=== PATIENT | female | born 1970 | race Caucasian/White ===

== ENCOUNTER 2017-10-26 10:55 | Inpatient (IN) | payer OTHER ==
[2017-10-25 11:58] VITALS: BMI 35.6
[~2017-10-26 10:55] MED LIST: BUPIVACAINE HCL/PF (5 MG/ML) 30 ML VIAL IJ ONE
[2017-10-26] MEDS ORDERED: fentaNYL CITRATE 250 MCG/5 ML VIAL ONE (12:37)
[2017-10-26] MEDS ORDERED: LIDOCAINE HCL/PF 2% SDV 5ML VIAL ONE (12:38)
[2017-10-26] MEDS ORDERED: ROCURONIUM BROMIDE 50 MG/5 ML VIAL ONE (12:38)
[2017-10-26] MEDS ORDERED: MIDAZOLAM HCL 2 MG/2 ML SINGLE DOSE VIAL ONE ×3 (12:38→12:43)
[2017-10-26] MEDS ORDERED: PROPOFOL 20 ML ONE (12:38)
[2017-10-26] MEDS ORDERED: DEXAMETHASONE SOD PHOSPHATE 4 MG/1 ML VIAL ONE (12:38)
[2017-10-26] MEDS ORDERED: ROPIVACAINE HCL 0.5% 30ML VIAL ONE (12:42)
[2017-10-26] MEDS ORDERED: morphine SULFATE 4 MG/ML VIAL IVPUSH PRN (13:04)
[2017-10-26] MEDS ORDERED: SUMAtriptan SUCCINATE 50 MG TABLET PO PRN (13:05)
--- NOTE | 2017-10-26 13:11 | OP ---
Operative Note - Note: Operative Date: 10/26/17 Pre-Operative Diagnosis: morbid obesity Operation: laparoscopic vertical sleeve gastrectomy, liver biopsy, upper endoscopy Surgeon: Josh Sears Instrumental Musician: Sujatha Olivo Anesthesiologist/ENVIRONMENTAL PROTECTION ECONOMIST: Vonda Motley Anesthesia: General Estimated Blood Loss (mls): 30 Fluid Volume Replaced (mls): 1,000 Operative Report Dictated: Yes
--- NOTE | 2017-10-26 13:12 | SURG ---
Surgery Land Measurer Note Land Measurer: Sujatha Olivo PA-C Date of Service: 10/26/17 Diagnosis: morbid obesity Procedure: laparoscopic vertical sleeve gastrectomy, liver biopsy, upper endoscopy I was present for the entirety of the operative procedure. For further detail, please refer to operative report. Visit type - Case Type Case Type: Scheduled - Emergency Emergency Visit: No - New patient This patient is new to me today: Yes Date on this admission: 10/26/17
[2017-10-26] MEDS ORDERED: METOCLOPRAMIDE HCL INJECTION 10 MG/2 ML VIAL IVPUSH SCH (13:15)
[2017-10-26] MEDS ORDERED: ACETAMINOPHEN 1000 MG/100 ML VIAL (NON FORMULARY) IVPB SCH (13:15)
[2017-10-26] MEDS ORDERED: SODIUM CHLORIDE 1,000 ML IV SCH (13:15)
[2017-10-26] MEDS ORDERED: ONDANSETRON 4 MG/2 ML VIAL IVPUSH SCH (13:15)
--- NOTE | 2017-10-26 13:15 | HP ---
Admitting History and Physical - Admission Chief Complaint: Morbid obesity History of Present Illness: Morbid obesity for vertical sleeve gastrectomy History Source: Patient Limitations to Obtaining History: No Limitations - Past Medical History SHOP TECHNICIAN: Yes: Migraine Cardiovascular: Yes: HTN Pulmonary: Yes: Sleep Apnea ...LMP: 10/15/17 Rheumatology: Yes: Fibromyalgia - Past Surgical History Additional Past Surgical History: Bladder left, left knee meniscus repair - Smoking History Smoking history: Never smoked - Alcohol/Substance Use Hx Alcohol Use: No Home Medications - Allergies Allergies/Adverse Reactions: Allergies Allergy/AdvReac Type Severity Reaction Status Date / Time No Known Allergies Allergy Verified 10/26/17 12:20 - Home Medications Home Medications: Ambulatory Orders Duloxetine HCl [Cymbalta] 30 mg PO BID 10/25/17 Famotidine [Pepcid] 20 mg PO BID #60 tablet 10/26/17 Oxycodone HCl/Acetaminophen [Percocet 5-325 mg Tablet] 1 - 2 tab PO Q6H #28 tab MDD 4 10/26/17 Sumatriptan Succinate [Imitrex -] 100 mg PO PRN PRN 10/26/17 Family Disease History - Family Disease History Family History: Unremarkable Review of Systems - Review of Systems Constitutional: denies: Chills, Fever HENT: reports: No Symptoms Neck: reports: No Symptoms Cardiovascular: reports: No Symptoms Respiratory: reports: No Symptoms Gastrointestinal: reports: No Symptoms Neurological: reports: No Symptoms Pain Intensity: 0 Physical Examination Vital Signs: Vital Signs Temperature 98.1 F 10/26/17 12:16 Pulse Rate 91 H 10/26/17 12:16 Respiratory Rate 20 10/26/17 12:16 Blood Pressure 149/91 10/26/17 12:16 O2 Sat by Pulse Oximetry (%) 96 10/26/17 12:15 Constitutional: Yes: Calm Eyes: Yes: WNL HENT: Yes: WNL Neck: Yes: WNL Cardiovascular: Yes: WNL Respiratory: Yes: WNL Gastrointestinal: Yes: Soft, Abdomen, Obese Neurological: Yes: Alert, Oriented Problem List - Problems (1) Morbid obesity due to excess calories Code(s): E66.01 - MORBID (SEVERE) OBESITY DUE TO EXCESS CALORIES (2) Sleep apnea Code(s): G47.30 - SLEEP APNEA, UNSPECIFIED Qualifiers: Sleep apnea type: unspecified type Qualified Code(s): G47.30 - Sleep apnea , unspecified (3) Hypertension Code(s): I10 - ESSENTIAL (PRIMARY) HYPERTENSION Qualifiers: Hypertension type: unspecified Qualified Code(s): I10 - Essential (primary ) hypertension Assessment/Plan Laparoscopic vertical sleeve gastrectomy, possible open, possible liver biopsy, EGD
[2017-10-26] MEDS ORDERED: BUPIVACAINE HCL/PF 0.5% (5MG/ML) 10 ML VIAL ONE (13:37)
[2017-10-26] MEDS ORDERED: ceFAZolin SODIUM 1 GM VIAL IVPB ONE (14:10)
[2017-10-26] MEDS ORDERED: ceFAZolin SODIUM 1 GM VIAL ONE (14:19)
[2017-10-26] MEDS ORDERED: ePHEDrine SULFATE 50 MG/1 ML AMPULE ONE (14:37)
[2017-10-26] MEDS ORDERED: GLYCOPYRROLATE 0.2 MG/1 ML VIAL ONE (15:48)
[2017-10-26] MEDS ORDERED: NEOSTIGMINE METHYLSULFATE 0.5 MG/ML - 10 ML MDV ONE (15:48)
[2017-10-26] MEDS ORDERED: BUPIVACAINE HCL/PF (5 MG/ML) 30 ML VIAL IJ ONE (15:51)
--- NOTE | 2017-10-26 16:20 | SPEC ---
DATE OF OPERATION: 10/26/2017 SURGEON: Josh Sears M.D. PRICE CHANGER: Jose Infante PREOPERATIVE DIAGNOSIS: 1. Morbid obesity. 2. Sleep apnea. 3. Hypertension. 4. Migraines. 5. Fibromyalgia. 6. Body mass index of 35.7. POSTOPERATIVE DIAGNOSIS: 1. Morbid obesity. 2. Sleep apnea. 3. Hypertension. 4. Migraines. 5. Fibromyalgia. 6. Body mass index of 35.7. 7. Hepatomegaly. PROCEDURE: 1. Diagnostic laparoscopy. 2. Laparoscopic vertical sleeve gastrectomy. 3. Laparoscopic wedge liver biopsy. 4. Esophagogastroduodenoscopy. SPECIMENS: 1. Greater curvature of the stomach. 2. Wedge liver biopsy. ESTIMATED BLOOD LOSS: 100 mL. DRAINS: None. ANESTHESIA: GET. BOUGIE: Size 36 German. REASON FOR THE PROCEDURE: This is a 47-year-old female who presents for weight loss options. She decided to proceed with laparoscopic, possible open vertical sleeve gastrectomy, possible liver biopsy, possible open, and upper endoscopy. RISKS AND BENEFITS: After describing the different options for weight loss management, the patient decided to proceed with a laparoscopic, possible open vertical sleeve gastrectomy. The patient was seen by the respective subspecialties and cleared for surgery. The risks and benefits of the procedure were explained. These included bleeding, infection, hernia, NH, DVT, PE, injury to surrounding structures including the liver, colon, bowel, spleen, esophagus, vessel injury, nerve injury, weight regain, gastric leak, staple line leak, sleeve leak, obstruction, vitamin deficiency, hair loss and as some of the possible complications. The patient understood and signed informed consent. DESCRIPTION OF PROCEDURE: The patient was placed supine on the operating room table. The patient underwent general endotracheal intubation. A Loo catheter was inserted. The arms were brought out at 90 degrees and secured. A footboard was placed and the legs were secured laterally with padding. The abdomen was prepped and draped in the usual sterile fashion. A timeout was performed. An incision was made in the left upper quadrant and a Veress needle inserted. Pneumoperitoneum was established. Subsequently, the Veress needle was removed and a 12-mm trocar was placed. The laparoscopic camera was then inserted and inspection of the abdominal cavity was performed. An incision was then made in the supraumbilical area and a 15-mm trocar was placed under direct visualization. A 5-mm trocar was then placed in the right upper quadrant and a 5-mm trocar was placed below the left subcostal margin. A stab wound was made in the subxiphoid area and a Erlinda clamp inserted and removed to dilate the tract. A Dedra liver retractor was inserted. The post was secured at the bedside by the nursing staff. The patient was placed in steep reverse Trendelenburg position and the Dedar liver retractor was used to secure the liver towards the anterior abdominal wall. The pylorus was identified and 6 cm proximal to it, the lesser sac was entered using the LigaSure device. All lateral attachments to the greater curvature of the stomach, including the short gastric vessels, were ligated using the LigaSure device toward the gastrosplenic and gastrophrenic ligaments. Once this was done in its entirety, it was confirmed that all tubes within the nasal or oropharyngeal cavity, including a temperature probe, was removed by Anesthesia. The bougie was then inserted by Anesthesia. Transection of the stomach was then begun staying adjacent to the bougie but away from the angularis. Transection of the stomach was performed near the portion of the stomach where the lesser sac was entered. Two laparoscopic Endo-HUBERT black sarah were used at this location. Laparoscopic Endo HUBERT purple staple loads were then used for the remainder of the transection until the greater curvature of the stomach was fully transected. This was done staying close to the bougie. Care was taken to stay away from the angle of His cephalad. The staple line was then inspected. Hemostasis was identified. A leak test was then performed. It was clamped distally to the staple line. Irrigation solution was placed in the left upper quadrant and air was insufflated by Anesthesia into the sleeve. No leaks were identified. No obstruction was identified. This was done through the entirety of the staple line. At this point, the irrigation solution was suctioned and again , hemostasis was noted. A wedge liver biopsy was then performed. The left lobe of the liver was identified and a portion of the edge was grasped. Using electrocautery, a wedge of the liver was excised. This was removed and sent off the field as specimen. Hemostasis at the site of the wedge liver biopsy was attained using electrocautery. The 15-mm supraumbilical trocar was then removed and the greater curvature specimen removed from the site using a sponge stick marroquin. The specimen was inspected and a Veress needle inserted. The specimen insufflated adequately and no leak was identified. The staple line was noted to be intact. A Anastacio-Dwight device was then used to temporarily close the fascia with a 0 Vicryl suture at the site. The 15-mm trocar was then reinserted and the 12-mm trocar in the left upper quadrant was removed. The fascia at this site was then closed using the Anastacio-Dwight device with a 0 Vicryl suture. Again, hemostasis was noted. The Dedra liver retractor was then removed under direct visualization. Pneumoperitoneum was desufflated and the fascial sutures were secured. Hemostasis was noted at all incision sites and Marcaine was injected at all incision sites. All incision sites were closed using 4-0 Biosyn. Sterile dressings were applied. The patient tolerated the procedure well and was transferred to the recovery room in stable condition with the Loo catheter intact. The patient was transferred to telemetry for further monitoring. ADDENDUM: At the end of the case, an upper endoscopy was performed. The endoscope was placed into the patient's mouth. The esophagus, GE junction, Gastric pouch and staple line were inspected. Hemostasis was noted. No leak or obstruction was noted. The stomach was suctioned, and the scope removed. The patient tolerated the procedure well. Surgicel was placed on the liver bed and along the staple lines for added hemostasis. Patient was transferred to recovery room in stable condition. Silvia [id number] CHEIKH
[2017-10-26] MEDS ORDERED: ACETAMINOPHEN INJECTION 100 ML IVPB ONE (16:25)
[2017-10-26] MEDS: ACETAMINOPHEN 1000 MG/100 ML VIAL (NON FORMULARY) IVPB SCH ×2 (16:30→22:41)
[2017-10-26] MEDS: METOCLOPRAMIDE HCL INJECTION 10 MG/2 ML VIAL IVPUSH SCH ×2 (17:00→22:41)
[2017-10-26] MEDS ORDERED: METOCLOPRAMIDE HCL INJECTION 10 MG/2 ML VIAL ONE (17:09)
[2017-10-26 17:18] LABS: BASO % 0.4 % (0-2.0); EOS % 1.1 % (0-4.5); HEMATOCRIT 31.9 % (32.4-45.2); HEMOGLOBIN 10.2 GM/dL (10.7-15.3); LYMPH % 17.7 % (8-40); MCH 24.6 pg (25.7-33.7); MCHC 31.8 g/dl (32.0-36.0); MEAN CELL VOLUME 77.4 fl (80-96); MEAN PLT VOLUME 8.7 fl (7.5-11.1); MONO % 2.7 % (3.8-10.2); NEUT % 78.1 % (42.8-82.8); PLATELET COUNT 343 K/MM3 (134-434); RBC 4.12 M/mm3 (3.60-5.2); RDW 16.5 % (11.6-15.6); WHITE BLOOD COUNT 12.6 K/mm3 (4.0-10.0)
[2017-10-26 17:53] LABS: ALBUMIN 3.4 g/dl (3.4-5.0); ANION GAP 9 (8-16); BILIRUBIN,TOTAL 0.7 mg/dL (0.2-1.0); BLOOD UREA NITROGEN 9 mg/dL (7-18); CHLORIDE 104 mmol/L (98-107); CO2 27 mmol/L (21-32); CREATININE 0.8 mg/dL (0.55-1.02); GLUCOSE,RANDOM 156 mg/dL (74-106); POTASSIUM 3.4 mmol/L (3.5-5.1); SGOT/AST 61 U/L (15-37); SGPT/ALT 49 U/L (12-78); SODIUM 140 mmol/L (136-145)
[2017-10-26 17:55] LABS: ALK PHOS 109 U/L (45-117); TOT PROT 6.4 g/dl (6.4-8.2)
[2017-10-26] MEDS: morphine SULFATE 4 MG/ML VIAL IVPUSH PRN ×2 (18:57→23:48)
[2017-10-26] MEDS: SODIUM CHLORIDE 1,000 ML IV SCH (19:30)
[2017-10-26] MEDS: ONDANSETRON 4 MG/2 ML VIAL IVPUSH SCH (20:31)
[2017-10-26] MEDS: ENOXAPARIN NA (PORCINE) 40 MG/0.4 ML DISP.SYRIN SQ SCH (21:26)
[2017-10-26] MEDS: FAMOTIDINE 20 MG/50 ML IVPB 20 MG/50 ML MG IVPB SCH (21:26)
[2017-10-26] MEDS ORDERED: FAMOTIDINE 20 MG/50 ML IVPB 20 MG/50 ML MG IVPB SCH (22:00)
--- NOTE | 2017-10-26 23:43 | HOSP ---
Subjective - Review of Symptoms Subjective: Called by nurse to evaluate sudden onset sharp shoulder pain. On examination, pain is located in L posterior shoulder. 7/10 in severity. Stated that it had subsided when I arrived. PE General: pt laying comfortably in bed in no acute distress Card/Lung exams wnl Extremities: Pain was reproducible on palpation. Plan: -discussed with nurse to continue pain medication and call Dr. Sears for further management (primary provider). Physical Examination Vital Signs: Vital Signs Temperature 98.0 F 10/26/17 21:04 Pulse Rate 86 10/26/17 21:04 Respiratory Rate 20 10/26/17 21:04 Blood Pressure 132/88 10/26/17 21:04 O2 Sat by Pulse Oximetry (%) 96 10/26/17 21:00 Labs: CBC, BMP 10/26/17 16:45 10/26/17 16:45 Visit type - Emergency Visit Emergency Visit: No - New Patient This patient is new to me today: Yes Date on this admission: 10/26/17 - Critical Care Critical Care patient: No
[2017-10-27] MEDS: ONDANSETRON 4 MG/2 ML VIAL IVPUSH SCH ×6 (00:15→21:51)
[2017-10-27] MEDS: ACETAMINOPHEN 1000 MG/100 ML VIAL (NON FORMULARY) IVPB SCH ×2 (05:00→09:50)
[2017-10-27] MEDS: METOCLOPRAMIDE HCL INJECTION 10 MG/2 ML VIAL IVPUSH SCH ×4 (05:45→21:51)
[2017-10-27 06:57] LABS: HEMATOCRIT 24.1 % (32.4-45.2); HEMOGLOBIN 7.8 GM/dL (10.7-15.3); MCH 25.1 pg (25.7-33.7); MCHC 32.5 g/dl (32.0-36.0); MEAN CELL VOLUME 77.1 fl (80-96); MEAN PLT VOLUME 8.5 fl (7.5-11.1); PLATELET COUNT 289 K/MM3 (134-434); RBC 3.13 M/mm3 (3.60-5.2); RDW 16.4 % (11.6-15.6); WHITE BLOOD COUNT 12.4 K/mm3 (4.0-10.0)
[2017-10-27 07:19] LABS: CALCIUM 7.3 mg/dL (8.5-10.1); CHLORIDE 104 mmol/L (98-107); POTASSIUM 4.2 mmol/L (3.5-5.1); SODIUM 139 mmol/L (136-145)
[2017-10-27 07:26] LABS: ALBUMIN 2.9 g/dl (3.4-5.0); ALK PHOS 87 U/L (45-117); ANION GAP 7 (8-16); BILIRUBIN,TOTAL 0.7 mg/dL (0.2-1.0); BLOOD UREA NITROGEN 11 mg/dL (7-18); CO2 28 mmol/L (21-32); CREATININE 0.8 mg/dL (0.55-1.02); GLUCOSE,RANDOM 138 mg/dL (74-106); SGOT/AST 46 U/L (15-37); SGPT/ALT 43 U/L (12-78); TOT PROT 5.4 g/dl (6.4-8.2)
--- NOTE | 2017-10-27 08:42 | PN ---
Progress Note (short form) - Note Progress Note: POD #1 - s/p lap sleeve gastrectomy under GA. VSS. Pt. doing well, no complaints. No apparent anesthetic complications noted. Continue current care.
[2017-10-27] MEDS: ENOXAPARIN NA (PORCINE) 40 MG/0.4 ML DISP.SYRIN SQ SCH (09:49)
[2017-10-27] MEDS: FAMOTIDINE 20 MG/50 ML IVPB 20 MG/50 ML MG IVPB SCH ×2 (09:50→21:51)
[2017-10-27] MEDS ORDERED: DULoxetine HCL 60 MG CAPSULE.DR PO SCH ×2 (10:00)
--- NOTE | 2017-10-27 10:59 | PN ---
Progress Note (short form) - Note Progress Note: POD #1 Alert. Doing well. OOB and ambulating unassisted. Voiding spontaneosuly. C/o mild incisional tenderness. Adequate pain control via prn meds. Denies n/v/f/c, CP or SOB. Last Vital Signs Temp Pulse Resp BP Pulse Ox 98.0 F 92 H 18 126/78 96 10/27/17 09:00 10/27/17 09:00 10/27/17 09:00 10/27/17 09:00 10/26/17 21:00 UGI: no leak, extravasation or outlet obstruction. Gen: nad ABD: all surgical ports c/d/i LE: SCDs bilat. Soft. NT <Demetrio Pike - Last Filed: 10/27/17 10:58> - Note Progress Note: Agree POD 1 Pain controlled AVSS Abd soft Hgb 10->7.8 UGI: no leak/obstructtion Clears Repeat H/H <Josh Sears - Last Filed: 10/27/17 13:07> Problem List - Problems (1) Morbid obesity due to excess calories Assessment/Plan: POD #1 s/p lap vertical sleeve gastrectomy, liver wedge biopsy, egd Bariatric Stage 1 diet ordered Cont OOB and ambulate Incentive spirometer Pain management prn dc planning Code(s): E66.01 - MORBID (SEVERE) OBESITY DUE TO EXCESS CALORIES <Demetrio Pike P - Last Filed: 10/27/17 10:58> - Problems (1) Morbid obesity due to excess calories Code(s): E66.01 - MORBID (SEVERE) OBESITY DUE TO EXCESS CALORIES (2) Sleep apnea Code(s): G47.30 - SLEEP APNEA, UNSPECIFIED Qualifiers: Sleep apnea type: unspecified type Qualified Code(s): G47.30 - Sleep apnea , unspecified (3) Hypertension Code(s): I10 - ESSENTIAL (PRIMARY) HYPERTENSION Qualifiers: Hypertension type: unspecified Qualified Code(s): I10 - Essential (primary ) hypertension <Josh Sears - Last Filed: 10/27/17 13:07>
[2017-10-27] MEDS: morphine SULFATE 4 MG/ML VIAL IVPUSH PRN ×2 (13:25→18:39)
[2017-10-27 14:05] LABS: BASO % 0.2 % (0-2.0); EOS % 0.1 % (0-4.5); HEMATOCRIT 21.8 % (32.4-45.2); HEMOGLOBIN 7.1 GM/dL (10.7-15.3); LYMPH % 14.4 % (8-40); MCHC 32.4 g/dl (32.0-36.0); MEAN CELL VOLUME 77.1 fl (80-96); MEAN PLT VOLUME 8.4 fl (7.5-11.1); MONO % 6.2 % (3.8-10.2); NEUT % 79.1 % (42.8-82.8); PLATELET COUNT 256 K/MM3 (134-434); RBC 2.82 M/mm3 (3.60-5.2); RDW 16.3 % (11.6-15.6); WHITE BLOOD COUNT 11.7 K/mm3 (4.0-10.0)
[2017-10-27] MEDS: SODIUM CHLORIDE 1,000 ML IV SCH (16:00)
[2017-10-27 23:51] LABS: HEMATOCRIT 23.4 % (32.4-45.2); HEMOGLOBIN 7.5 GM/dL (10.7-15.3); MCH 25.4 pg (25.7-33.7); MCHC 31.9 g/dl (32.0-36.0); MEAN CELL VOLUME 79.5 fl (80-96); MEAN PLT VOLUME 8.3 fl (7.5-11.1); PLATELET COUNT 253 K/MM3 (134-434); RBC 2.95 M/mm3 (3.60-5.2); RDW 18.1 % (11.6-15.6); WHITE BLOOD COUNT 11.3 K/mm3 (4.0-10.0)
[2017-10-28] MEDS: morphine SULFATE 4 MG/ML VIAL IVPUSH PRN ×3 (00:23→16:00)
[2017-10-28] MEDS: METOCLOPRAMIDE HCL INJECTION 10 MG/2 ML VIAL IVPUSH SCH ×3 (05:54→16:18)
[2017-10-28] MEDS: ONDANSETRON 4 MG/2 ML VIAL IVPUSH SCH ×5 (05:55→16:18)
[2017-10-28 07:34] LABS: BASO % 0.5 % (0-2.0); EOS % 0.6 % (0-4.5); HEMOGLOBIN 8.4 GM/dL (10.7-15.3); LYMPH % 15.8 % (8-40); MCH 26.5 pg (25.7-33.7); MCHC 33.7 g/dl (32.0-36.0); MEAN CELL VOLUME 78.7 fl (80-96); MEAN PLT VOLUME 8.5 fl (7.5-11.1); MONO % 8.1 % (3.8-10.2); PLATELET COUNT 221 K/MM3 (134-434); RBC 3.18 M/mm3 (3.60-5.2); RDW 17.5 % (11.6-15.6); WHITE BLOOD COUNT 11.4 K/mm3 (4.0-10.0)
--- NOTE | 2017-10-28 08:29 | PN ---
Addendum entered and electronically signed by Elizabeth Mack PA 10/28/17 11 :28: RPT CBC ordered for 1400, d/c pending lab review by Dr Sears/surgery team Original Note: Progress Note (short form) - Note Progress Note: Surgery POD #2 Laparoscopic gastric sleeve with post op anemia, transfused 2 units yesterday. Patient states she is feeling better. She is tolerating her diet and feels gurgling in her stomach but is not passing gas yet. She states her pain is controlled. she denies any CP, SOB, N/V, fever, chills, or change in vision. Vital Signs Temp 99.2 F 10/28/17 05: Pulse 88 10/28/17 05:17 Resp 20 10/28/17 05:17 BP 139/79 10/28/17 05:17 Pulse Ox 95 10/27/17 22:39 Intake & Output 10/27/17 10/27/17 10/28/17 11:59 23:59 11:59 Intake Total 1650 840 600 Output Total 2 Balance 1648 840 600 Weight 209 lb 12.8 oz 210 lb 3.2 oz Intake: IV 1500 150 150 Normal Saline - 1,000 ml 1500 @ 150 mls/hr IV ASDIR DUARTE Rx#:[id number] Normal Saline - 1,000 ml 150 150 @ 150 mls/hr IV ASDIR DUARTE Rx#:[id number] IVPB 150 100 100 Oral 0 240 Packed Cells 350 350 Output: Urine 2 Void 2 Other: Voiding Method Toilet Toilet Toilet # Unmeasured Voids Void 1 2 Bowel Movement No Weight Measurement Method Standing Scale Standing Scale CBC, BMP 10/28/17 07:07 10/27/17 06:30 PE: A&Ox3, NAD unlabored resp on RA ABD: all surgical ports c/d/i with some bruising, surrounding tissue intact with no evidence of d/c or tracking erythema LE: SCDs bilat. compartments Soft supple and NT, +2 pedal pulses <Elizabeth Mack - Last Filed: 10/28/17 08:29> - Note Progress Note: Agree Pain controlled Tolerated liquids Repeat H/H stable Discharged home <Josh Sears - Last Filed: 10/29/17 10:42> Problem List - Problems (1) Morbid obesity due to excess calories Assessment/Plan: POD #2 patient doing well after transfusion, H&H stable. 1) Continue diet as per protocol 2) DVT prophylaxis 3) d/c planning for home Code(s): E66.01 - MORBID (SEVERE) OBESITY DUE TO EXCESS CALORIES <Elizabeth Mack - Last Filed: 10/28/17 08:29> - Problems (1) Morbid obesity due to excess calories Code(s): E66.01 - MORBID (SEVERE) OBESITY DUE TO EXCESS CALORIES (2) Sleep apnea Code(s): G47.30 - SLEEP APNEA, UNSPECIFIED Qualifiers: Sleep apnea type: unspecified type Qualified Code(s): G47.30 - Sleep apnea , unspecified (3) Hypertension Code(s): I10 - ESSENTIAL (PRIMARY) HYPERTENSION Qualifiers: Hypertension type: unspecified Qualified Code(s): I10 - Essential (primary ) hypertension <Josh Sears - Last Filed: 10/29/17 10:42>
[2017-10-28] MEDS: FAMOTIDINE 20 MG/50 ML IVPB 20 MG/50 ML MG IVPB SCH (09:27)
[2017-10-28 13:36] LABS: HEMATOCRIT 25.7 % (32.4-45.2); HEMOGLOBIN 8.5 GM/dL (10.7-15.3); MCH 26.2 pg (25.7-33.7); MCHC 33.2 g/dl (32.0-36.0); MEAN CELL VOLUME 79.1 fl (80-96); MEAN PLT VOLUME 8.5 fl (7.5-11.1); PLATELET COUNT 236 K/MM3 (134-434); RBC 3.25 M/mm3 (3.60-5.2); RDW 17.6 % (11.6-15.6)
[2017-10-28 19:21] VITALS: BP 129/80; PULSE 87; TEMP 98.8
--- NOTE | 2017-10-29 14:01 | PATH ---
Surgical Pathology Report Patient Name: ROLA CHANDLER [facility]. Rec. #: [id number] /Age/Gender: 1970 (Age: 47) / F Account: [id number] Location: 4 W TELEMETRY U Taken: 10/26/2017 Received: 10/27/2017 Reported: 10/29/2017 Physicians: Josh Sears M.D. Specimen(s) Received A: GREATER CURVATURE STOMACH B: LIVER BIOPSY Clinical History Morbid obesity Final Diagnosis A. GREATER CURVATURE STOMACH, LAPAROSCOPIC VERTICAL GASTRIC SLEEVE GASTRECTOMY: PORTION OF STOMACH WITH CHRONIC GASTRITIS. IMMUNOSTAIN IS NEGATIVE FOR H. PYLORI ORGANISMS. NEGATIVE FOR INTESTINAL METAPLASIA. B. LIVER, BIOPSY: LIVER TISSUE WITH MINIMAL STEATOSIS (< 5%). NO INCREASED FIBROSIS (TRICHROME STAIN) OR IRON (IRON STAIN) DEPOSITS. Electronically Signed Angel Humphries M.D. Gross Description A. Received in formalin, labeled "greater curvature of the stomach," is a 104 gram, 19.0 x 3.0 x 2.7 cm. portion of stomach with a stapled margin of resection. The serosa is hsieh-holland with minimal attached fat. The mucosa is hsieh-pink with normal folds. No mucosal masses are identified. Field Rep sections are submitted in one cassette. B. received in formalin labeled "liver biopsy," and a 3.7 x 2.0 x 1.3 cm hsieh firm irregular portion of soft tissue, consistent with a liver biopsy. Field Rep sections are submitted in one cassette. DL/10/27/2017 saudi/10/27/2017
== END 2017-10-28 17:50 | disposition home or self-care (01) | DRG 403 ==
LOC: JSAMEDAYSX 10:55 → EDSTATUS 14:00 → J4W 18:15
PROVIDERS: ADMIT Surgery; ATTEND Surgery
PROC: 0DB64Z3 Excision of Stomach, Percutaneous Endoscopic Approach, Vertical (ICD-10-PCS; principal; 2017-10-26 12:00)
PROC: 0FB24ZX Excision of Left Lobe Liver, Percutaneous Endoscopic Approach, Diagnostic (ICD-10-PCS; 2017-10-26 12:00)
PROC: 0WJP4ZZ Inspection of Gastrointestinal Tract, Percutaneous Endoscopic Approach (ICD-10-PCS; 2017-10-26 12:00)
PROC: 30233N1 Transfusion of Nonautologous Red Blood Cells into Peripheral Vein, Percutaneous Approach (ICD-10-PCS; 2017-10-27)
DX: E66.01 Morbid (severe) obesity due to excess calories (principal); Z68.36 Body mass index [BMI] 36.0-36.9, adult; G43.909 Migraine, unspecified, not intractable, without status migrainosus; G47.30 Sleep apnea, unspecified; I10 Essential (primary) hypertension; M79.7 Fibromyalgia; D64.9 Anemia, unspecified; R16.0 Hepatomegaly, not elsewhere classified
CPT/HCPCS: 36415; 36430; 74241-TC-FY; 80053; 84703; 85025; 85027; 86850; 86900; 86901; 86922; 94010; 94760; J0131; J7030; P9038; P9058